=== PATIENT | female | born 1980 | race Caucasian/White ===

== ENCOUNTER 2018-04-07 09:00 | Emergency (ER) | payer SELFPAY ==
[2018-04-07] MEDS ORDERED: Sodium Chloride 0.9% 1,000 ML IV ONE (09:28)
[2018-04-07] MEDS ORDERED: Sodium Chloride 0.9% 10 ML Syringe FLUSH PRN (09:28)
[2018-04-07] MEDS ORDERED: Ondansetron 4 MG/2 ML SDV IVPUSH ONE (09:28)
[2018-04-07] MEDS ORDERED: Sodium Chloride 0.9% 2.5 ML Syringe FLUSH PRN (09:28)
[2018-04-07] MEDS ORDERED: HYDROmorphone 2 MG/ML SDV IVPUSH ONE (09:28)
--- NOTE | 2018-04-07 09:31 | EDM.PDOC ---
ED HPI GENERAL MEDICAL PROBLEM - General Chief Complaint: Abdominal Pain Stated Complaint: ABD PAIN Time Seen by Provider: 04/07/18 09:11 - History of Present Illness INITIAL COMMENTS - FREE TEXT/NARRATIVE: HISTORY AND PHYSICAL: History of present illness: The patient is a 37-year-old female with no abdominal surgical history except a bilateral tubal ligation and presents with a history of gallstones that she was diagnosed with during the winter but did not have a cholecystectomy and now she is having right upper right-sided abdominal pain. The patient says she had this pain in the past had an ultrasound and was referred to a surgeon in [facility] who said that the ultrasound was not correct and that she did not need her gallbladder removed. He did not do an endoscopy or any further testing and advised that she takes [id number] Pepcid. The patient said that she has controlled her pain with dietary restrictions and last evening she ate a fried Oreo cookie at the local fair and the pain started. She says that originates in the right upper quadrant and radiates to her right flank and the right lower abdomen. It's associated with nausea but no vomiting and no diarrhea. She has no fever chills chest pain or shortness of breath. Patient did not take any medication prior to coming here. Review of systems: As per history of present illness and below otherwise all systems reviewed and negative. Past medical history: As per history of present illness and as reviewed below otherwise noncontributory. Surgical history: As per history of present illness and as reviewed below otherwise noncontributory. Social history: No reported history of drug or alcohol abuse. Family history: As per history of present illness and as reviewed below otherwise noncontributory. Physical exam: General: Well-developed well-nourished female who is nontoxic and somewhat exaggerated with my exam. She is somewhat anxious and vital signs are reviewed by me HEENT: Atraumatic, normocephalic, pupils reactive, negative for conjunctival pallor or scleral icterus, mucous membranes moist, throat clear, neck supple, nontender, trachea midline. Lungs: Clear to auscultation, breath sounds equal bilaterally, chest nontender. Heart: S1S2, regular rate and rhythm no overt murmur Abdomen: Soft, nondistended, mildly tender on palpation in the right upper quadrant right mid and right lower quadrant without rebound or guarding. Negative for masses or hepatosplenomegaly. NABS Pelvis: Stable nontender. Genitourinary: Deferred. Rectal: Deferred. Extremities: Atraumatic, negative for cords or calf pain. Neurovascular unremarkable. Neuro: Awake, alert, oriented. Cranial nerves II through XII unremarkable. Cerebellum unremarkable. Motor and sensory unremarkable throughout. Exam nonfocal. Diagnostics: CBC CMP amylase lipase UA CT scan of the abdomen and pelvis Therapeutics: IV fluids Zofran Dilaudid 1204: Case was discussed with Dr. Williamson and she is aware of the CT scan and lab findings and would like to see the patient and her clinic next week and I will give her pain medications and antiemetics for home. She's been advised on a low-fat diet and reasons to return to the ED. The patient says her pain is improving. Impression: Right upper quadrant pain/biliary colic/cholelithiasis Definitive disposition and diagnosis as appropriate pending reevaluation and review of above. 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 ED EXAM, GENERAL - Physical Exam Exam: See Below (See dictation) Course - Vital Signs Last Recorded V/S: Last Vital Signs Temp 36.2 C 04/07/18 09:15 Pulse 68 04/07/18 09:45 Resp 20 04/07/18 09:45 BP 97/47 L 04/07/18 09:45 Pulse Ox 98 04/07/18 09:45 - Orders/Labs/Meds Orders: Active Orders 24 hr Category Date Time Status UA W/MICROSCOPIC [URIN] Stat Lab 04/07/18 10:57 Ordered Iopamidol [Isovue Multipack-370 (76%)] Med 04/07/18 12:05 Once 90 ml IVPUSH ONETIME ONE Sodium Chloride 0.9% [Saline Flush] Med 04/07/18 09:28 Active 10 ml FLUSH ASDIRECTED PRN Sodium Chloride 0.9% [Saline Flush] Med 04/07/18 09:28 Active 2.5 ml FLUSH ASDIRECTED PRN Saline Lock Insert [OM.PC] Stat Oth 04/07/18 09:28 Ordered Medication Orders Iopamidol (Isovue Multipack-370 (76%)) 90 ml IVPUSH ONETIME ONE Stop: 04/07/18 12:06 Sodium Chloride (Saline Flush) 10 ml FLUSH ASDIRECTED PRN PRN Reason: Keep Vein Open Last Admin: 04/07/18 09:48 Dose: 10 ml Sodium Chloride (Saline Flush) 2.5 ml FLUSH ASDIRECTED PRN PRN Reason: Keep Vein Open Last Admin: 04/07/18 09:48 Dose: 2.5 ml Labs: Laboratory Tests 04/07/18 04/07/18 04/07/18 Range/Units 09:20 09:20 10:57 WBC 11.08 H (4.0-11.0) K/uL RBC 4.26 L (4.30-5.90) M/uL Hgb 13.8 (12.0-16.0) g/dL Hct 39.9 (36.0-46.0) % MCV 93.7 (80.0-98.0) fL MCH 32.4 H (27.0-32.0) pg MCHC 34.6 (31.0-37.0) g/dL RDW Std Deviation 45.1 (28.0-62.0) fl RDW Coeff of Christopher 13 (11.0-15.0) % Plt Count 244 (150-400) K/uL MPV 10.10 (7.40-12.00) fL Neut % (Auto) 86.0 H (48.0-80.0) % Lymph % (Auto) 9.8 L (16.0-40.0) % [place] % (Auto) 3.9 (0.0-15.0) % Eos % (Auto) 0.1 (0.0-7.0) % Baso % (Auto) 0.2 (0.0-1.5) % Neut # (Auto) 9.5 H (1.4-5.7) K/uL Lymph # (Auto) 1.1 (0.6-2.4) K/uL [place] # (Auto) 0.4 (0.0-0.8) K/uL Eos # (Auto) 0.0 (0.0-0.7) K/uL Baso # (Auto) 0.0 (0.0-0.1) K/uL Nucleated RBC % 0.0 /100WBC Nucleated RBCs # 0 K/uL Sodium 141 (136-145) mmol/L Potassium 3.6 (3.5-5.1) mmol/L Chloride 108 H (98-107) mmol/L Carbon Dioxide 22.7 (21.0-32.0) mmol/L BUN 17 (7.0-18.0) mg/dL Creatinine 0.9 (0.6-1.0) mg/dL Est Cr Clr Drug Dosing 80.88 mL/min Estimated GFR (MDRD) > 60.0 ml/min Glucose 120 H (74-106) mg/dL Calcium 8.9 (8.5-10.1) mg/dL Total Bilirubin 0.5 (0.2-1.0) mg/dL AST 28 (15-37) IU/L ALT 34 (14-63) IU/L Alkaline Phosphatase 40 L (46-116) U/L Total Protein 7.6 (6.4-8.2) g/dL Albumin 4.1 (3.4-5.0) g/dL Globulin 3.5 (2.0-3.5) g/dL Albumin/Globulin Ratio 1.2 L (1.3-2.8) Amylase 43 (25-115) U/L Lipase 137 (73-393) U/L Urine Color YELLOW Urine Appearance CLOUDY Urine pH 8.5 H (5.0-8.0) Ur Specific [place] 1.020 (1.001-1.035) Urine Protein NEGATIVE (NEGATIVE) mg/dL Urine Glucose (UA) NEGATIVE (NEGATIVE) mg/dL Urine Ketones NEGATIVE (NEGATIVE) mg/dL Urine Occult Blood TRACE-LYSED (NEGATIVE) Urine Nitrite NEGATIVE (NEGATIVE) Urine Bilirubin NEGATIVE (NEGATIVE) Urine Urobilinogen 0.2 (<2.0) EU/dL Ur Leukocyte Esterase SMALL (NEGATIVE) Urine RBC 1-3 (0-2/HPF) Urine WBC 1-2 (0-5/HPF) Ur Epithelial Cells RARE (NONE-FEW) Amorphous Sediment MANY (NEGATIVE) Urine Bacteria FEW (NEGATIVE) Meds: Medications Generic Name Dose Route Start Last Admin Trade Name Freq PRN Reason Stop Dose Admin Iopamidol 90 ml 04/07/18 12:05 Isovue Multipack-370 (76%) IVPUSH 04/07/18 12:06 ONETIME ONE Sodium Chloride 10 ml 04/07/18 09:28 04/07/18 09:48 Saline Flush FLUSH 10 ml ASDIRECTED PRN Administration Keep Vein Open Sodium Chloride 2.5 ml 04/07/18 09:28 04/07/18 09:48 Saline Flush FLUSH 2.5 ml ASDIRECTED PRN Administration Keep Vein Open Discontinued Medications Generic Name Dose Route Start Last Admin Trade Name Eladioq PRN Reason Stop Dose Admin Hydromorphone HCl 1 mg 04/07/18 09:28 04/07/18 09:47 Dilaudid IVPUSH 04/07/18 09:29 Not Given ONETIME ONE Hydromorphone HCl 1 mg 04/07/18 09:40 04/07/18 09:47 Dilaudid IVPUSH 04/07/18 09:41 1 mg ONETIME ONE Administration Sodium Chloride 1,000 mls @ 999 mls/hr 04/07/18 09:28 04/07/18 09:48 Normal Saline IV 04/07/18 10:28 999 mls/hr STAT ONE Administration Ondansetron HCl 4 mg 04/07/18 09:28 04/07/18 09:47 Zofran IVPUSH 04/07/18 09:29 4 mg ONETIME ONE Administration Departure - Departure Time of Disposition: 12:07 Disposition: Home, Self-Care 01 Condition: Good Clinical Impression: Biliary colic Cholelithiasis Qualifiers: Cholelithiasis location: gallbladder Cholecystitis presence: without cholecystitis Biliary obstruction: without biliary obstruction Qualified Code(s) : K80.20 - Calculus of gallbladder without cholecystitis without obstruction - Discharge Information Referrals: PCP,None [Primary Care Provider] - Forms: ED Department Discharge Additional Instructions: The following information is given to patients seen in the emergency department who are being discharged to home. This information is to outline your options for follow-up care. We provide all patients seen in our emergency department with a follow-up referral. The need for follow-up, as well as the timing and circumstances, are variable depending upon the specifics of your emergency department visit. If you don't have a primary care physician on staff, we will provide you with a referral. We always advise you to contact your personal physician following an emergency department visit to inform them of the circumstance of the visit and for follow-up with them and/or the need for any referrals to a consulting specialist. The emergency department will also refer you to a specialist when appropriate. This referral assures that you have the opportunity for followup care with a specialist. All of these measure are taken in an effort to provide you with optimal care, which includes your followup. Under all circumstances we always encourage you to contact your private physician who remains a resource for coordinating your care. When calling for followup care, please make the office aware that this follow-up is from your recent emergency room visit. If for any reason you are refused follow-up, please contact the [facility] emergency department at and ask to speak to the emergency department charge nurse. [facility] Specialty Care-General Surgery Professional [address] [id number] Please eat a low-fat diet and push hydration. Use medications you have been given for nausea and vomiting as well as for pain. Please keep your appointment with Dr. Williamson for follow-up and return to ER as needed and as discussed - My Orders Last 24 Hours: My Active Orders 04/07/18 09:28 Sodium Chloride 0.9% [Saline Flush] 10 ml FLUSH ASDIRECTED PRN Sodium Chloride 0.9% [Saline Flush] 2.5 ml FLUSH ASDIRECTED PRN Saline Lock Insert [OM.PC] Stat 04/07/18 10:57 UA W/MICROSCOPIC [URIN] Stat 04/07/18 12:05 Iopamidol [Isovue Multipack-370 (76%)] 90 ml IVPUSH ONETIME ONE - Assessment/Plan Last 24 Hours: My Active Orders 04/07/18 09:28 Sodium Chloride 0.9% [Saline Flush] 10 ml FLUSH ASDIRECTED PRN Sodium Chloride 0.9% [Saline Flush] 2.5 ml FLUSH ASDIRECTED PRN Saline Lock Insert [OM.PC] Stat 04/07/18 10:57 UA W/MICROSCOPIC [URIN] Stat 04/07/18 12:05 Iopamidol [Isovue Multipack-370 (76%)] 90 ml IVPUSH ONETIME ONE
[2018-04-07] MEDS ORDERED: HYDROmorphone 1 MG/ML Syringe IVPUSH ONE (09:40)
[2018-04-07 10:00] LABS: CHLORIDE,CL 108 mmol/L (98-107); SODIUM,NA 141 mmol/L (136-145)
--- NOTE | 2018-04-07 11:54 | CT ---
CT of the abdomen and pelvis with contrast. HISTORY: Pain TECHNIQUE: Axial CT images were obtained of the abdomen and pelvis following administration of 90 mL of Isovue-370 in the left antecubital fossa without complication. Coronal and sagittal reconstruction s obtained. FINDINGS: The lung bases are clear, no pleural effusion. Liver, spleen, and adrenal glands appear normal. Pancreas is normal. Cholelithiasis without evidence of cholecystitis. The common bile duct is moderately dilated measuring up to 1.3 cm with a mild promi nence of intrahepatic biliary ducts. No definitive filling defect noted within the common bile duct. No bulky retroperitoneal lymphadenopathy or abdominal ascites. The kidneys enhance and function symmetrically without evidence of obstructive uropathy. Punctate non obstructing stone within the midpole of the left kidney. The large and small bowel are normal in caliber without evidence of obstruction. No focal pericolonic inflammation or stranding. The appendix is normal. The urinary bladder is normal. Uterus and ovaries are unremarkable. No bulky pelvic lymphadenopathy or free pelvic fluid. No suspicious osseous abnormalities identified. IMPRESSION: 1. Cholelithiasis without evidence of cholecystitis. 2. Moderate prominence of the common bile duct and intra-hepatic biliary ducts without a definite eli ling defect. 3. Punctate nonobstructing left renal stone.
[2018-04-07] MEDS ORDERED: Iopamidol 755 MG/ML 500 ML Multipack Bottle IVPUSH ONE (12:05)
== END 2018-04-07 12:24 | disposition home or self-care (01) ==
LOC: MW.ED 09:00
DX: K80.20 Calculus of gallbladder without cholecystitis without obstruction (principal); Z88.5 Allergy status to narcotic agent; Z79.899 Other long term (current) drug therapy
CPT/HCPCS: 36415; 74177; 80053; 81001; 82150; 83690; 85025; 96361; 96374; 96375; 99284; J1170; J2405; J7040; Q9967